=== PATIENT | female | born 1960 | race Caucasian/White ===

== ENCOUNTER 2018-03-13 08:38 | Inpatient (IN) | payer OTHER ==
[~2018-03-13] VITALS: Ht 170.2 cm; Wt 56.2 kg
[~2018-03-13 08:38] MED LIST: EMBREL; GABA-826 PO
[2018-03-13] MEDS ORDERED: TRAZ50TA18 PO (10:13)
[2018-03-13 10:15] LABS: ALBUMIN 2.7 g/dL (3.4-5.0); ANION GAP 9 mmol/L (5-15); CHLORIDE 109 mmol/L (98-107)
[2018-03-13 10:33] LABS: BASOPHILS # (AUTO) 0.12 x10^3/uL (0-0.1); BASOPHILS % (AUTO) 1 % (0-1); EOSINOPHILS # (AUTO) 0.04 x10^3/uL (0-0.4); EOSINOPHILS % (AUTO) 0 % (1-7); LYMPHOCYTES # (AUTO) 1.89 x10^3/uL (1-3.4); LYMPHOCYTES % (AUTO) 22 % (22-44); MD NO; MEAN CORPUSCULAR HEMOGLOBIN 25.7 pg (27.0-34.8); MEAN CORPUSCULAR HGB CONC 31.8 g/dL (32.4-35.8); MEAN CORPUSCULAR VOLUME 80.7 fL (80-100); MEAN PLATELET VOLUME 7.4 fL (7.4-10.4); MONOCYTES # (AUTO) 0.64 x10^3/uL (0.2-0.8); MONOCYTES % (AUTO) 7 % (2-9); NEUTROPHILS # (AUTO) 6.11 x10^3/uL (1.8-6.8); NEUTROPHILS % (AUTO) 70 % (42-75); PLATELET COUNT 463 x10^3/uL (130-400); RED BLOOD COUNT 4.35 x10^6/uL (3.82-5.3); RED CELL DISTRIBUTION WIDTH 17.2 % (9.6-15.2)
[2018-03-13] MEDS ORDERED: ASPIRIN 81 MG TABLET CHEW PO ONE (11:00)
[2018-03-13] MEDS ORDERED: BUPR1FIL3 PO (11:07)
[2018-03-13] MEDS ORDERED: ASPIRIN 81 MG TABLET CHEW ONE (11:09)
[2018-03-13 11:20] LABS: INTERNATIONAL NORMALIZED RATIO 0.89 (0.93-1.1); PROTHROMBIN TIME 9.3 Seconds (9.6-11.5)
[2018-03-13] MEDS ORDERED: POLYETHYLENE GLYCOL 17 GM PACKET PO PRN (12:00)
[2018-03-13] MEDS ORDERED: ONDANSETRON 2MG/ML, 2ML IVPush PRN (12:00)
[2018-03-13] MEDS ORDERED: LABETALOL 5MG/ML, 20ML IVPush PRN (12:00)
[2018-03-13] MEDS ORDERED: DOCUSATE 100 MG CAPSULE PO PRN (12:00)
[2018-03-13] MEDS ORDERED: BISACODYL 10 MG SUPP PR PRN (12:00)
[2018-03-13] MEDS ORDERED: ACETAMINOPHEN 325 MG TABLET PO PRN (12:00)
[2018-03-13 12:50] LABS: HCT (SEDRATE) 35.1 % (34.6-47.8)
[2018-03-13 12:57] VITALS: BP 130/84
[2018-03-13 13:22] VITALS: BP 130/82
[2018-03-13] MEDS ORDERED: methylPREDNISolone 4mg DOSE PACK PO ONE (13:30)
[2018-03-13] MEDS: ENOXAPARIN 40 MG/0.4 ML SQ SCH (13:47)
[2018-03-13] MEDS ORDERED: GADOBUTROL 7.5 MMOL/7.5 ML PFS ONE (15:19)
[2018-03-13] MEDS ORDERED: GABAPENTIN 100 MG CAPSULE PO SCH (16:00)
[2018-03-13] MEDS: BUPRENORPHINE HCL/NALOXONE 8-2MG FILM SL SCH ×2 (16:00→21:57)
[2018-03-13] MEDS ORDERED: GABA300C10 PO (17:32)
[2018-03-13] MEDS ORDERED: GABAPENTIN 100 MG CAPSULE ONE (17:36)
[2018-03-13] MEDS ORDERED: GABAPENTIN 100 MG CAPSULE PO ONE (18:00)
[2018-03-13 20:57] VITALS: BP 130/79
[2018-03-13] MEDS: GABAPENTIN 300 MG CAPSULE PO SCH (21:56)
[2018-03-13] MEDS: SODIUM CHLORIDE FLUSH 10ML SYR IVF SCH (21:56)
[2018-03-13] MEDS: TRAZODONE 50MG TABLET PO SCH (21:56)
[2018-03-14] VITALS (7 sets, daily range): BP systolic 122–163; BP diastolic 84–100
[2018-03-14 05:53] LABS: BASOPHILS # (AUTO) 0.04 x10^3/uL (0-0.1); BASOPHILS % (AUTO) 0 % (0-1); EOSINOPHILS # (AUTO) 0.01 x10^3/uL (0-0.4); EOSINOPHILS % (AUTO) 0 % (1-7); LYMPHOCYTES # (AUTO) 2.53 x10^3/uL (1-3.4); LYMPHOCYTES % (AUTO) 29 % (22-44); MD NO; MEAN CORPUSCULAR HEMOGLOBIN 25.8 pg (27.0-34.8); MEAN CORPUSCULAR HGB CONC 32.2 g/dL (32.4-35.8); MEAN CORPUSCULAR VOLUME 80.3 fL (80-100); MEAN PLATELET VOLUME 6.6 fL (7.4-10.4); MONOCYTES # (AUTO) 0.76 x10^3/uL (0.2-0.8); MONOCYTES % (AUTO) 9 % (2-9); NEUTROPHILS # (AUTO) 5.56 x10^3/uL (1.8-6.8); NEUTROPHILS % (AUTO) 63 % (42-75); PLATELET COUNT 473 x10^3/uL (130-400); RED BLOOD COUNT 4.37 x10^6/uL (3.82-5.3); RED CELL DISTRIBUTION WIDTH 17.1 % (9.6-15.2)
[2018-03-14 06:08] LABS: ANION GAP 8 mmol/L (5-15); CHLORIDE 109 mmol/L (98-107)
[2018-03-14 06:14] LABS: CHOL/HDL RATIO 4.4; CHOLESTEROL, TOTAL 188 mg/dL (140-239); CREATININE 0.57 mg/dL (0.55-1.02); HDL CHOL % 23 % (28-40); HDL CHOLESTEROL (DIRECT) 43 mg/dL (40-60); LDL CHOLESTEROL,CALCULATED 114 mg/dL (54-169); LDL/HDL RATIO 2.7 (0.5-3.0); TRIGLYCERIDES 156 mg/dL (50-200); VLDL CHOLESTEROL 31 mg/dL (0-25)
[2018-03-14] MEDS: SODIUM CHLORIDE FLUSH 10ML SYR IVF SCH ×2 (09:00→21:00)
[2018-03-14] MEDS: BUPRENORPHINE HCL/NALOXONE 8-2MG FILM SL SCH ×3 (09:00→22:53)
[2018-03-14] MEDS: GABAPENTIN 300 MG CAPSULE PO SCH ×3 (09:52→22:25)
[2018-03-14] MEDS ORDERED: ASPIRIN 81 MG TABLET CHEW PO ONE (11:00)
[2018-03-14] MEDS: ENOXAPARIN 40 MG/0.4 ML SQ SCH (14:22)
[2018-03-14] MEDS ORDERED: SIMVASTATIN 40 MG TABLET PO SCH (21:00)
[2018-03-14] MEDS ORDERED: SIMVASTATIN 20 MG TABLET PO SCH (21:00)
[2018-03-14] MEDS: TRAZODONE 50MG TABLET PO SCH (23:16)
[2018-03-15 00:51] VITALS: BP 140/91
[2018-03-15 08:06] VITALS: BP 150/93
[2018-03-15] MEDS: GABAPENTIN 300 MG CAPSULE PO SCH (09:02)
[2018-03-15] MEDS: BUPRENORPHINE HCL/NALOXONE 8-2MG FILM SL SCH (09:04)
[2018-03-15] MEDS ORDERED: ASPI-621 PO (10:16)
[2018-03-15] MEDS ORDERED: METH4TAB PO (10:16)
[2018-03-15] MEDS ORDERED: SIMV40TA3 PO (10:16)
== END 2018-03-15 15:00 | disposition home or self-care (01) | DRG 65 ==
LOC: ED 10:20 → EDIP 11:04 → 4EST 12:47 → DCLOUNGE 03-15 14:41
PROVIDERS: ADMIT Internal Medicine Pulmonary Disease; ATTEND Internal Medicine Pulmonary Disease
DX: I63.9 Cerebral infarction, unspecified (principal); E44.0 Moderate protein-calorie malnutrition; Z68.1 Body mass index [BMI] 19.9 or less, adult; L40.50 Arthropathic psoriasis, unspecified; F41.1 Generalized anxiety disorder; D64.9 Anemia, unspecified; I35.8 Other nonrheumatic aortic valve disorders; I10 Essential (primary) hypertension; M06.9 Rheumatoid arthritis, unspecified; Z82.3 Family history of stroke; Z83.3 Family history of diabetes mellitus
CPT/HCPCS: 36415; 70450; 70553; 80048; 80061; 82040; 85025; 85610; 85651; 85730; 93005; 93306; 93880; 99285; A9585; J1650; J7509; 92523-GN

== ENCOUNTER 2018-05-22 05:58 | Emergency (ER) | payer OTHER ==
[~2018-05-22] VITALS: Ht 170.2 cm; Wt 55.6 kg
[~2018-05-22 05:58] MED LIST changes: +ASPI-621 PO; +BUPR1FIL3 PO; +GABA300C10 PO; +METH4TAB PO; +SIMV40TA3 PO; +TRAZ-136 PO
[2018-05-22 06:34] LABS: BASOPHILS # (AUTO) 0.04 x10^3/uL (0-0.1); BASOPHILS % (AUTO) 0 % (0-1); EOSINOPHILS # (AUTO) 0.04 x10^3/uL (0-0.4); EOSINOPHILS % (AUTO) 0 % (1-7); LYMPHOCYTES % (AUTO) 20 % (22-44); MD NO; MEAN CORPUSCULAR HGB CONC 32.5 g/dL (32.4-35.8); MEAN CORPUSCULAR VOLUME 80.1 fL (80-100); MEAN PLATELET VOLUME 6.2 fL (7.4-10.4); MONOCYTES # (AUTO) 0.82 x10^3/uL (0.2-0.8); MONOCYTES % (AUTO) 6 % (2-9); NEUTROPHILS % (AUTO) 73 % (42-75); PLATELET COUNT 708 x10^3/uL (130-400); RED BLOOD COUNT 4.75 x10^6/uL (3.82-5.3); RED CELL DISTRIBUTION WIDTH 16.9 % (9.6-15.2)
[2018-05-22 06:44] LABS: ALBUMIN 2.8 g/dL (3.4-5.0); ANION GAP 10 mmol/L (5-15); CALCIUM 8.6 mg/dL (8.5-10.1); CHLORIDE 107 mmol/L (98-107); CREATININE 0.84 mg/dL (0.55-1.02)
[2018-05-22 07:20] VITALS: BP 151/101
== END 2018-05-22 07:38 | disposition home or self-care (01) ==
LOC: ED 07:30
DX: F41.1 Generalized anxiety disorder (principal); F51.04 Psychophysiologic insomnia; I10 Essential (primary) hypertension; Z86.73 Personal history of transient ischemic attack (TIA), and cerebral infarction without residual deficits; M06.9 Rheumatoid arthritis, unspecified
CPT/HCPCS: 36415; 80048; 82040; 85025; 93005; 99285

== ENCOUNTER 2018-05-26 05:02 | Emergency (ER) | payer OTHER ==
[~2018-05-26] VITALS: Ht 170.2 cm; Wt 54.8 kg
== END 2018-05-26 05:51 | disposition home or self-care (01) ==
LOC: ED 05:44
DX: F51.01 Primary insomnia (principal); F41.1 Generalized anxiety disorder; I10 Essential (primary) hypertension; Z86.73 Personal history of transient ischemic attack (TIA), and cerebral infarction without residual deficits; Z79.899 Other long term (current) drug therapy
CPT/HCPCS: 99283

== ENCOUNTER → 2018-10-30 | Outpatient (CLI) | payer OTHER ==
[~2018-10-30] MED LIST changes: -ASPI-621 PO; +ASPI81TA45 PO; -TRAZ-136 PO; +TRAZ50TA66 PO
== END | disposition home or self-care (01) ==
LOC: CFH 12:01
PROVIDERS: ATTEND Specialist
DX: M51.16 Intervertebral disc disorders with radiculopathy, lumbar region (principal); M17.11 Unilateral primary osteoarthritis, right knee; M41.86 Other forms of scoliosis, lumbar region
CPT/HCPCS: 72148

== ENCOUNTER 2018-12-24 10:11 | Inpatient (IN) | payer OTHER ==
[~2018-12-24] VITALS: Ht 172.7 cm; Wt 63.9 kg
[2018-12-24] VITALS (8 sets, daily range): BP systolic 98–130; BP diastolic 60–88
[~2018-12-24 10:11] MED LIST changes: +APIX5TAB PO; +ATOR20TA37 PO; +CYCL-259 PO; +OXYC-302 PO; +PANT40TA5 PO; +PRED10TA PO; +PREG150C PO
[2018-12-24 11:08] LABS: MEAN CORPUSCULAR HEMOGLOBIN 22.7 pg (27.0-34.8); MEAN CORPUSCULAR HGB CONC 31.2 g/dL (32.4-35.8); MEAN CORPUSCULAR VOLUME 72.6 fL (80-100); MEAN PLATELET VOLUME 6.7 fL (7.4-10.4); PLATELET COUNT 633 x10^3/uL (130-400); RED CELL DISTRIBUTION WIDTH 19.3 % (9.6-15.2)
[2018-12-24 11:09] LABS: ALANINE AMINOTRANSFERASE 18 U/L (12-78); ALBUMIN 2.2 g/dL (3.4-5.0); ANION GAP 3 mmol/L (5-15); CALCIUM 7.5 mg/dL (8.5-10.1); CHLORIDE 110 mmol/L (98-107)
[2018-12-24 11:12] LABS: ALKALINE PHOSPHATASE 69 U/L (45-117); ANISOCYTOSIS 1+; BASOPHILS # (AUTO) 0.04 x10^3/uL (0-0.1); BASOPHILS % (AUTO) 1 % (0-1); BILIRUBIN,TOTAL 0.2 mg/dL (0.2-1.0); CREATININE 0.51 mg/dL (0.55-1.02); EOSINOPHILS # (AUTO) 0.05 x10^3/uL (0-0.4); EOSINOPHILS % (AUTO) 1 % (1-7); HYPOCHROMIA 1+; LYMPHOCYTES # (AUTO) 1.94 x10^3/uL (1-3.4); LYMPHOCYTES % (AUTO) 23 % (22-44); MD MORPH REVIEW ONLY; MICROCYTOSIS 1+; MONOCYTES # (AUTO) 0.52 x10^3/uL (0.2-0.8); MONOCYTES % (AUTO) 6 % (2-9); NEUTROPHILS # (AUTO) 5.98 x10^3/uL (1.8-6.8); NEUTROPHILS % (AUTO) 70 % (42-75); TOTAL PROTEIN 5.4 g/dL (6.4-8.2)
[2018-12-24 11:14] LABS: <PLATELET ESTIMATE> INCREASED; <PLT MORPHOLOGY> NORMAL PLT MORPH
[2018-12-24 11:16] LABS: INTERNATIONAL NORMALIZED RATIO 0.92 (0.93-1.1); PROTHROMBIN TIME 9.7 Seconds (9.6-11.5)
--- NOTE | 2018-12-24 12:10 | NUR ---
ASSUMED CARE OF PT AT THIS TIME FROM LOBBY. AMBULATORY TO ROOM WITH STEADY GAIT. LABS AND US COMPLETED IN PIT. 58 Y/O F STATES "DIAGNOSED WITH DVT 12/15, TAKING BLOOD THINNERS, I'VE ONLY BEEN OUT OF HOSPITAL 9 DAYS, MONDAY NIGHT I NOTICED INCREASED SWELLING, THEN MONDAY MORNING FOOT, ANKLE, CALF ALL SWOLLEN AND BY MONDAY SWELLING WAS ALL THE WAY TO MY THIGH AND IT'S BEEN WEEPING CLEAR FLUIDS TOO SINCE MONDAY." RATES PAIN 7/10 IN LLE, UNABLE TO PALPATE PEDAL PULSE, POSTERIOR TIBIAL PULSE WEAK, 4+ PITTING EDEMA NOTED WITH ERYTHEMA AND WARMTH TO LLE. CONT PULSE OX, BP MONITORS APPLIED. VSS. CALL LIGHT IN REACH. FALL PRECAUTIONS IN PLACE. SIDE RAILS UPX2. AWAITING EVAL BY ERP. A&OX4. WARM BLANKET PROVIDED FOR COMFORT.
[2018-12-24] MEDS ORDERED: PREG150C PO (12:24)
[2018-12-24] MEDS ORDERED: TRAZ-137 PO (12:24)
[2018-12-24] MEDS ORDERED: OXYC-306 PO (12:24)
--- NOTE | 2018-12-24 12:31 | NUR ---
PT UP FOR RECHECK, AWAITING EVAL BY ERP. RESTING COMFORTABLY. CALL LIGHT IN REACH
--- NOTE | 2018-12-24 12:50 | NUR ---
DR. MURRAY AT BEDSIDE FOR EVALUATION, AWAITING ORDERS.
[2018-12-24] MEDS ORDERED: OXYcodone/APAP 5/325MG TABLET ONE (13:23)
[2018-12-24] MEDS ORDERED: PROMETHAZINE 25 MG/ML, 1ML IM PRN (13:30)
[2018-12-24] MEDS ORDERED: DOCUSATE 100 MG CAPSULE PO PRN (13:30)
[2018-12-24] MEDS ORDERED: BISACODYL 10 MG SUPP PR PRN (13:30)
[2018-12-24] MEDS ORDERED: POLYETHYLENE GLYCOL 17 GM PACKET PO PRN (13:30)
[2018-12-24] MEDS ORDERED: LABETALOL 5MG/ML, 20ML IVPush PRN (13:30)
[2018-12-24] MEDS ORDERED: SODIUM CHLORIDE FLUSH 10ML SYR IVF PRN (13:30)
[2018-12-24] MEDS ORDERED: morphine SULFATE 10 MG/ML, 1ML IVPush PRN (13:30)
[2018-12-24] MEDS ORDERED: HEPARIN 5,000 UNITS/ML, 1ML SQ SCH (13:30)
[2018-12-24] MEDS ORDERED: ONDANSETRON 2MG/ML, 2ML IVPush PRN (13:30)
[2018-12-24] MEDS ORDERED: OXYcodone/APAP 5/325MG TABLET PO ONE (13:30)
[2018-12-24] MEDS ORDERED: OXYcodone IR 5MG TABLET PO PRN (13:30)
[2018-12-24] MEDS ORDERED: hydrALAzine 20 MG/ML, 1ML IVPush PRN (13:30)
[2018-12-24] MEDS ORDERED: ONDANSETRON ODT 4 MG PO PRN (13:30)
--- NOTE | 2018-12-24 13:30 | NUR ---
BOARDING SPECIALIST AT BEDSIDE FOR EKG, GI MD AT BEDSIDE FOR EVALUATION. PT MEDICATED NOTED PER ORDER FOR 7/10 PAIN IN LLE. PT GIVEN INFORMED CONSENT BY DR. MURRAY FOR BLOOD TRANSFUSION, AGREES TO POC AND VERBALIZED UNDERSTANDING. CONSENT SIGNED BY PT AND DR. MURRAY AND PLACED ON PAPER CHART. RESTING COMFORTABLY. DENIES NEED TO USE RESTROOM. VSS. CALL LIGHT IN REACH
--- NOTE | 2018-12-24 13:45 | NUR ---
ADMITTING PROVIDER DR. VASQUEZ AT BEDSIDE FOR EVALUATION.
--- NOTE | 2018-12-24 14:15 | NUR ---
BLOOD READY, REQUESTED FROM BLOOD BANK
[2018-12-24 14:21] LABS: FREE T4 (FREE THYROXINE) 0.94 ng/dL (0.76-1.46); THYROID STIMULATING HORMONE 1.55 mIU/L (0.358-3.740)
--- NOTE | 2018-12-24 14:49 | NUR ---
PT REPORTS PAIN IMPROVED TO 5/10 "TOOK EDGE OFF, BETTER." DENIES NEED TO USE RESTROOM. BLOOD RECEIVED FROM BLOOD BANK. TO START TRANSFUSION. CALL LIGHT IN REACH. VSS.
--- NOTE | 2018-12-24 15:02 | NUR ---
BLOOD TRANSFUSION STARTED NOTED, VERIFIED AT BEDSIDE WITH FABBY HOOPER. VSS.
--- NOTE | 2018-12-24 15:14 | NUR ---
PT TOLERATING BLOOD TRANSFUSION WELL. DENIES ANY S/S OF REACTION. VSS. CALL LIGHT IN REACH. WATCHING TV. AWAITING ROOM ON FLOOR. PULSE OX 95% RA. REFUSES NEED FOR PAIN MEDICATION, RATES PAIN 4-5/10 IN LLE.
[2018-12-24] MEDS ORDERED: PANTOPRAZOLE 40 MG IV ONE (15:45)
--- NOTE | 2018-12-24 15:45 | NUR ---
PT CONTINUES TOLERATING BLOOD TRANSFUSION WELL. RESTING COMFORTABLY. VSS. CALL LIGHT IN REACH. DENIES NEED TO USE RESTROOM.
[2018-12-24] MEDS ORDERED: TEMPLATE NON-FORMULARY MED. (Gabapentin** 600 MG) PO SCH (16:00)
--- NOTE | 2018-12-24 16:00 | NUR ---
GI MD AT BEDSIDE FOR CONSULT.
[2018-12-24] MEDS: PANTOPRAZOLE 40 MG IV IVPush SCH (16:17)
--- NOTE | 2018-12-24 16:25 | NUR ---
GABAPENTIN REQUESTED FROM PHARMACY
[2018-12-24] MEDS ORDERED: GABAPENTIN 300 MG CAPSULE ONE (16:26)
[2018-12-24] MEDS ORDERED: OXYcodone/APAP 7.5/325MG TABLET ONE (16:26)
[2018-12-24] MEDS: OXYcodone/APAP 7.5/325MG TABLET PO SCH ×2 (16:30→20:29)
--- NOTE | 2018-12-24 16:32 | NUR ---
PT GIVEN WATER PER DR. LORD AND REGULAR DIET TRAY ORDERED, PT TO GO ON CLEAR LIQUID DIET TOMORROW. MEDICATED PER MD ORDER FOR PAIN IN LLE AND CHRONIC BACK PAIN. VSS. CALL LIGHT IN REACH. TOLERATING BLOOD TRANSFUSION WELL.
--- NOTE | 2018-12-24 16:43 | NUR ---
REPORT AND CARE TO LESLY RN AT THIS TIME, ROOM RECEIVED.
--- NOTE | 2018-12-24 17:00 | NUR ---
PT RESTING COMFORTABLY. DENIES NEED TO USE RESTROOM. BLOOD TRANSFUSIONS CONTINUES. VSS. AWAITING TRANSPORT TO FLOOR.
--- NOTE | 2018-12-24 17:15 | NUR ---
BLOOD STILL TRANSFUSING AT TIME OF TRANSFER
[2018-12-24] MEDS ORDERED: GABAPENTIN 300 MG CAPSULE PO SCH (17:16)
[2018-12-24 18:01] LABS: HEMOGLOBIN A1C 5.1 % (4.2-6.3)
[2018-12-24] MEDS: ATORVASTATIN 20 MG TABLET PO SCH (20:29)
[2018-12-24] MEDS: PREGABALIN 150 MG CAPSULE PO SCH (20:29)
[2018-12-24] MEDS: TRAZODONE 100MG TABLET PO SCH (20:29)
[2018-12-25] MEDS: PANTOPRAZOLE 40 MG IV IVPush SCH ×2 (01:54→15:17)
[2018-12-25 02:05] VITALS: BP 112/70
[2018-12-25] MEDS: OXYcodone/APAP 7.5/325MG TABLET PO SCH ×4 (05:56→23:56)
[2018-12-25 06:24] LABS: ANION GAP 4 mmol/L (5-15); CHLORIDE 114 mmol/L (98-107)
[2018-12-25 06:33] LABS: ALANINE AMINOTRANSFERASE 14 U/L (12-78); ALKALINE PHOSPHATASE 66 U/L (45-117); BILIRUBIN,TOTAL 0.3 mg/dL (0.2-1.0); CALCIUM 7.3 mg/dL (8.5-10.1); CHOL/HDL RATIO 3.1; CHOLESTEROL, TOTAL 109 mg/dL (140-239); CREATININE 0.44 mg/dL (0.55-1.02); HDL CHOL % 32 % (28-40); HDL CHOLESTEROL (DIRECT) 35 mg/dL (40-60); LDL CHOLESTEROL,CALCULATED 38 mg/dL (54-169); LDL/HDL RATIO 1.1 (0.5-3.0); TOTAL PROTEIN 4.7 g/dL (6.4-8.2); TRIGLYCERIDES 180 mg/dL (50-200); VLDL CHOLESTEROL 36 mg/dL (0-25)
[2018-12-25 07:13] VITALS: BP 109/71
[2018-12-25] MEDS: PREGABALIN 150 MG CAPSULE PO SCH ×2 (08:43→21:44)
[2018-12-25] MEDS: MOVIPREP POWDER 1 PREP KIT PO SCH ×2 (12:53→21:45)
[2018-12-25 14:38] VITALS: BP 112/73
[2018-12-25 18:28] VITALS: BP 118/82
[2018-12-25 18:45] VITALS: BP 96/58
[2018-12-25] MEDS: ATORVASTATIN 20 MG TABLET PO SCH (21:44)
[2018-12-25] MEDS: TRAZODONE 100MG TABLET PO SCH (23:56)
[2018-12-26 00:37] VITALS: BP 95/60
[2018-12-26] MEDS: PANTOPRAZOLE 40 MG IV IVPush SCH ×2 (01:38→15:09)
[2018-12-26] MEDS: OXYcodone/APAP 7.5/325MG TABLET PO SCH ×3 (05:19→17:02)
[2018-12-26 06:51] VITALS: BP 98/63
[2018-12-26] MEDS: MOVIPREP POWDER 1 PREP KIT PO SCH (09:00)
[2018-12-26] MEDS ORDERED: ROCURONIUM 10 MG/ML,10ML ONE (10:08)
[2018-12-26] MEDS ORDERED: PROPOFOL 10 MG/ML, 20ML ONE (10:08)
[2018-12-26] MEDS ORDERED: SUGAMMADEX 200 MG/2 ML IVPush ONE (10:35)
[2018-12-26] MEDS: PREGABALIN 150 MG CAPSULE PO SCH (12:31)
[2018-12-26 12:32] VITALS: BP 122/80
[2018-12-26] MEDS ORDERED: APIX5TAB PO (13:39)
[2018-12-26] MEDS ORDERED: ASPI81TA45 PO (13:39)
[2018-12-26] MEDS ORDERED: FUROSEMIDE 40 MG/4 ML IV ONE (14:30)
[2018-12-26 14:47] VITALS: BP 122/78
[2018-12-26 15:34] VITALS: BP 146/88
[2018-12-26 18:21] VITALS: BP 127/85
[2018-12-27] MEDS ORDERED: PANTOPROZOLE 40MG TABLET PO SCH (06:00)
== END 2018-12-26 20:43 | disposition home or self-care (01) | DRG 377 ==
LOC: ED 10:36 → EDIP 14:07 → 4EST 17:12
PROVIDERS: ADMIT Internal Medicine; ATTEND Emergency Medicine
PROC: 30233N1 Transfusion of Nonautologous Red Blood Cells into Peripheral Vein, Percutaneous Approach (ICD-10-PCS; principal; 2018-12-24)
PROC: 0D778ZZ Dilation of Stomach, Pylorus, Via Natural or Artificial Opening Endoscopic (ICD-10-PCS; 2018-12-26)
PROC: 0DJD8ZZ Inspection of Lower Intestinal Tract, Via Natural or Artificial Opening Endoscopic (ICD-10-PCS; 2018-12-26)
DX: K92.2 Gastrointestinal hemorrhage, unspecified (principal); E43 Unspecified severe protein-calorie malnutrition; D62 Acute posthemorrhagic anemia; I82.411 Acute embolism and thrombosis of right femoral vein; I82.431 Acute embolism and thrombosis of right popliteal vein; I69.354 Hemiplegia and hemiparesis following cerebral infarction affecting left non-dominant side; K64.8 Other hemorrhoids; L40.9 Psoriasis, unspecified; D50.9 Iron deficiency anemia, unspecified; I10 Essential (primary) hypertension; K44.9 Diaphragmatic hernia without obstruction or gangrene; M06.9 Rheumatoid arthritis, unspecified; R19.5 Other fecal abnormalities; G89.29 Other chronic pain; M54.9 Dorsalgia, unspecified; Z68.21 Body mass index [BMI] 21.0-21.9, adult; M19.90 Unspecified osteoarthritis, unspecified site; Z83.71 Family history of colonic polyps; Z86.711 Personal history of pulmonary embolism
CPT/HCPCS: 0399T; 36415; 36430; 71045; 80053; 80061; 83036; 83735; 84439; 84443; 85014; 85018; 85025; 85610; 85730; 86850; 86900; 86923; 93005; 93306; 99291; G0378; J1940; J2704; C1725; C9113; P9016

== ENCOUNTER 2019-05-15 11:04 | Outpatient (CLI) | payer OTHER | END 2019-05-15 23:59 | disposition home or self-care (01) | LOC: CFH 11:04 | PROVIDERS: ATTEND Surgery | DX: I82.422 Acute embolism and thrombosis of left iliac vein (principal); N28.1 Cyst of kidney, acquired; M41.86 Other forms of scoliosis, lumbar region; M51.36 Other intervertebral disc degeneration, lumbar region | CPT/HCPCS: 74177; Q9967 ==

== ENCOUNTER 2019-10-21 10:39 | Emergency (ER) | payer OTHER ==
[~2019-10-21] VITALS: Ht 172.7 cm; Wt 60.7 kg
[~2019-10-21 10:39] MED LIST changes: +OXYC-306 PO; +TRAZ-137 PO
[2019-10-21 11:28] LABS: MEAN CORPUSCULAR HEMOGLOBIN 19.8 pg (27.0-34.8); MEAN CORPUSCULAR HGB CONC 30.5 g/dL (32.4-35.8); MEAN PLATELET VOLUME 6.3 fL (7.4-10.4); PLATELET COUNT 646 x10^3/uL (130-400); RED BLOOD COUNT 5.05 x10^6/uL (3.82-5.3); RED CELL DISTRIBUTION WIDTH 21.5 % (9.6-15.2)
[2019-10-21 11:36] LABS: ALBUMIN 3.8 g/dL (3.4-5.0); ANION GAP 9 mmol/L (5-15); CALCIUM 8.8 mg/dL (8.5-10.1); CHLORIDE 108 mmol/L (98-107); CREATININE 0.68 mg/dL (0.55-1.02)
[2019-10-21 11:37] LABS: MD YES
[2019-10-21 11:40] LABS: TROPONIN I < 0.015 ng/mL (0.000-0.045)
[2019-10-21 11:54] LABS: ANISOCYTOSIS 1+; LYMPH#(MANUAL) 1.99 x10^3/uL (1-3.4); LYMPHS% (MANUAL) 28 % (22-44); MICROCYTOSIS 2+; MONOS#(MANUAL) 0.14 x10^3/uL (0.3-2.7); MONOS% (MANUAL) 2 % (2-9); SEG#(MANUAL) 4.97 x10^3/uL (1.8-6.8); SEGS% (MANUAL) 70 % (42-75)
[2019-10-21 11:55] LABS: <PLATELET ESTIMATE> INCREASED; <PLT MORPHOLOGY> NORMAL PLT MORPH
[2019-10-21 12:59] VITALS: BP 166/101
[2019-10-21] MEDS ORDERED: OXYcodone/APAP 7.5/325MG TABLET PO ONE (13:30)
[2019-10-21] MEDS ORDERED: OXYcodone/APAP 7.5/325MG TABLET ONE (13:50)
--- NOTE | 2019-10-21 14:05 | NUR ---
BREAK RN: PATIENT MEDICATED PER EMAR, TOLERATED WELL. WAITING FOR MD ORDER FOR DIFFERENT MEDICATION TO BE ADMINISTERED HERE, THEN PATIENT TBDC.
[2019-10-21] MEDS ORDERED: GABAPENTIN 300 MG CAPSULE ONE (14:11)
--- NOTE | 2019-10-21 14:13 | NUR ---
PATIENT MEDICATED PER EMAR, TOLERATED WELL. TBDC.
--- NOTE | 2019-10-21 14:17 | NUR ---
Patient/Caregiver given discharge instructions and they have confirmed that they understand the instructions. Patient wheeled to discharge. States she will call taxi for ride home.
[2019-10-21] MEDS ORDERED: GABAPENTIN 300 MG CAPSULE PO ONE (14:30)
== END 2019-10-21 14:18 | disposition home or self-care (01) ==
LOC: ED 14:04
DX: M54.2 Cervicalgia (principal); M54.9 Dorsalgia, unspecified; M79.642 Pain in left hand; M25.532 Pain in left wrist; M06.9 Rheumatoid arthritis, unspecified; G89.29 Other chronic pain; I10 Essential (primary) hypertension; F12.10 Cannabis abuse, uncomplicated; Z72.9 Problem related to lifestyle, unspecified; Z72.89 Other problems related to lifestyle; Z86.73 Personal history of transient ischemic attack (TIA), and cerebral infarction without residual deficits; Z86.718 Personal history of other venous thrombosis and embolism
CPT/HCPCS: 36415; 71046; 80048; 82040; 84484; 85025; 93005; 99284

== ENCOUNTER 2019-10-22 17:17 | Emergency (ER) | payer OTHER ==
[~2019-10-22] VITALS: Ht 172.7 cm; Wt 58.7 kg
--- NOTE | 2019-10-22 17:39 | NUR ---
RETAIL SALES TEAMMATE: PT TO ROOM FROM LOBBY
[2019-10-22] MEDS ORDERED: HYDROmorphone 2 MG/ML, 1ML ONE (18:17)
[2019-10-22] MEDS ORDERED: HYDROmorphone 2 MG/ML, 1ML IM ONE (18:30)
--- NOTE | 2019-10-22 19:17 | NUR ---
Provided bedside report to RUFUS Villavicencio. All questions answered. NADN. Saud RN to assume care of pt at this time.
[2019-10-22 19:28] VITALS: BP 118/74
== END 2019-10-22 19:33 | disposition home or self-care (01) ==
LOC: ED 19:05
DX: M54.5 Low back pain (principal); G89.29 Other chronic pain; M06.9 Rheumatoid arthritis, unspecified; I10 Essential (primary) hypertension; Z86.718 Personal history of other venous thrombosis and embolism; Z86.73 Personal history of transient ischemic attack (TIA), and cerebral infarction without residual deficits
CPT/HCPCS: 96372; 99283; J1170

== ENCOUNTER → 2020-08-06 | Outpatient (CLI) | payer OTHER ==
[~2020-08-06] MED LIST changes: +AMLO-150 PO; +GABA800T5 PO; +OXYC-296 PO; -PANT40TA5 PO; +PANT40TA6 PO; +SIMV40TA20 PO; -SIMV40TA3 PO; +TIZA4CAP PO; -TRAZ-137 PO; +TRAZ-175 PO; +VENL75TA PO
[2020-08-06 12:38] LABS: BASOPHILS % (AUTO) 1 % (0-1); EOSINOPHILS % (AUTO) 1 % (1-7); LYMPHOCYTES % (AUTO) 32 % (22-44); MEAN CORPUSCULAR HGB CONC 31.4 g/dL (32.4-35.8); MEAN PLATELET VOLUME 6.6 fL (7.4-10.4); MONOCYTES % (AUTO) 11 % (2-9); NEUTROPHILS % (AUTO) 55 % (42-75); PLATELET COUNT 500 x10^3/uL (130-400); RED CELL DISTRIBUTION WIDTH 20.9 % (9.6-15.2)
[2020-08-06 12:39] LABS: MD NO
[2020-08-06 12:48] LABS: INTERNATIONAL NORMALIZED RATIO 0.88 (0.93-1.1); PROTHROMBIN TIME 9.1 Seconds (9.6-11.5)
[2020-08-06 12:50] LABS: CHLORIDE 108 mmol/L (98-107)
[2020-08-06 12:54] LABS: ANION GAP 4 mmol/L (5-15); CREATININE 0.76 mg/dL (0.55-1.02)
== END | disposition home or self-care (01) ==
LOC: STAR 11:23
PROVIDERS: ATTEND Orthopaedic Surgery
DX: Z01.812 Encounter for preprocedural laboratory examination (principal); Z20.828 Contact with and (suspected) exposure to other viral communicable diseases; M17.11 Unilateral primary osteoarthritis, right knee; I21.29 ST elevation (STEMI) myocardial infarction involving other sites
CPT/HCPCS: 36415; 80048; 83036; 85025; 85610; 85730; 87081; 87147; 87635; 87806; 93005; G0475

== ENCOUNTER 2020-08-10 10:33 | Observation (INO) | payer OTHER ==
[~2020-08-10] VITALS: Ht 172.7 cm; Wt 67.1 kg
[~2020-08-10 10:33] MED LIST changes: +EPINEPHRINE 1 MG/ML, 1ML ONE; +KETOROLAC 60 MG/2 ML ONE; +ROPIvacaine/PF 0.2%, 20 ML ONE; +ROPIvacaine/PF 0.5%, 20 ML ONE; +SODIUM CHLORIDE 0.9% 50 ML ONE; +TRANEXAMIC ACID 100 MG/ML, 10ML ONE
[2020-08-10] MEDS ORDERED: ACETAMINOPHEN 500 MG TABLET PO ONE (11:30)
[2020-08-10] MEDS ORDERED: GABAPENTIN 300 MG CAPSULE PO ONE (11:30)
[2020-08-10] MEDS ORDERED: LACTATED RINGERS 1,000 ML IV SCH (11:30)
[2020-08-10] MEDS ORDERED: FLU VACC QS2020-21(6MOS UP)/PF 60MCG/0.5 ML SYR IM-VACC ONE (11:30)
[2020-08-10] MEDS ORDERED: CHLORHEXIDINE 15 ML UDC MM ONE (11:30)
[2020-08-10] MEDS ORDERED: MIDAZOLAM 1 MG/ML, 2ML ONE (11:38)
[2020-08-10] MEDS ORDERED: FENTANYL PF 250 MCG/5ML ONE (11:38)
[2020-08-10] MEDS ORDERED: POLYETHYLENE GLYCOL 17 GM PACKET PO PRN (12:30)
[2020-08-10] MEDS ORDERED: ONDANSETRON 2MG/ML, 2ML IVPush PRN ×2 (12:30→14:00)
[2020-08-10] MEDS ORDERED: PROMETHAZINE 12.5 MG SUPP PR PRN (12:30)
[2020-08-10] MEDS ORDERED: ONDANSETRON 4 MG TABLET PO PRN (12:30)
[2020-08-10] MEDS ORDERED: MAGNESIUM HYDROXIDE 8%, 30ML UDC PO PRN (12:30)
[2020-08-10] MEDS ORDERED: PSYLLIUM PACKET PO PRN (12:30)
[2020-08-10] MEDS ORDERED: SENNA/DOCUSATE TABLET PO PRN (12:30)
[2020-08-10] MEDS ORDERED: METOCLOPRAMIDE 10MG TABLET PO PRN (12:30)
[2020-08-10] MEDS ORDERED: HYDROmorphone 1 MG/ML, 1ML INJ IVPush PRN (12:30)
[2020-08-10] MEDS ORDERED: DEXAMETHASONE 4 MG/ML, 1ML IVPush SCH (12:30)
[2020-08-10] MEDS ORDERED: DIPHENHYDRAMINE 50 MG/ML, 1ML IVPush PRN (12:30)
[2020-08-10] MEDS ORDERED: DIPHENHYDRAMINE 50 MG CAPSULE PO PRN (12:30)
[2020-08-10] MEDS: CEFAZOLIN PMX 1GM/50ML 50 ML IVPB SCH ×3 (12:30→23:26)
[2020-08-10] MEDS ORDERED: ALUMINUM/MAG/SIMETHICONE 30 ML UDC PO PRN (12:30)
[2020-08-10] MEDS ORDERED: TRANEXAMIC ACID 1,000 MG in SODIUM CHLORIDE 0.9% 100 ML IVPB ONE (12:30)
[2020-08-10] MEDS ORDERED: ONDANSETRON 2MG/ML, 2ML ONE (12:46)
[2020-08-10] MEDS ORDERED: CEFAZOLIN 1,000 MG ONE (12:46)
[2020-08-10] MEDS ORDERED: DEXAMETHASONE 4 MG/ML, 1ML ONE (12:46)
[2020-08-10] MEDS ORDERED: PROPOFOL 10 MG/ML, 50ML ONE (12:46)
[2020-08-10] MEDS ORDERED: hydrALAzine 20 MG/ML, 1ML ONE (12:46)
[2020-08-10] MEDS ORDERED: ESMOLOL 100 MG/10 ML ONE (12:46)
[2020-08-10] MEDS ORDERED: NITROPRUSSIDE 25 MG/ML, 2ML ONE (13:20)
[2020-08-10] MEDS ORDERED: FENTANYL PF 100 MCG/2ML ONE ×6 (13:45→16:29)
[2020-08-10] MEDS ORDERED: hydrALAzine 20 MG/ML, 1ML IV PRN (14:00)
[2020-08-10] MEDS ORDERED: ROPIvacaine/PF 0.2%, 100ML 550 ML (check volume) INJ ONE (14:00)
[2020-08-10] MEDS ORDERED: LABETALOL 5MG/ML, 20ML IV PRN (14:00)
[2020-08-10] MEDS ORDERED: HYDROmorphone 1 MG/ML, 1ML INJ ONE ×2 (14:27→14:35)
[2020-08-10] MEDS ORDERED: OXYcodone 5 MG/5 ML ORAL.SOL UDC ONE ×2 (14:35→15:46)
[2020-08-10] MEDS: FENTANYL PF 100 MCG/2ML IV PRN ×7 (14:39→16:30)
[2020-08-10] MEDS: HYDROmorphone 1 MG/ML, 1ML INJ IVPush PRN ×4 (14:40→15:00)
[2020-08-10] MEDS ORDERED: DIAZEPAM 5 MG/ML, 2ML ONE (14:41)
[2020-08-10] MEDS: OXYcodone 5 MG/5 ML ORAL.SOL UDC PO PRN ×2 (14:51→15:47)
[2020-08-10] MEDS: DIAZEPAM 5 MG/ML, 2ML IVPush PRN ×2 (14:59→15:25)
[2020-08-10] MEDS ORDERED: KETOROLAC 30 MG/1 ML ONE (15:52)
[2020-08-10] MEDS: KETOROLAC 30 MG/1 ML IV SCH ×2 (16:11→16:41)
[2020-08-10] MEDS ORDERED: TIZANIDINE 4MG TABLET PO ONE (16:30)
[2020-08-10 18:33] VITALS: BP 150/91
[2020-08-10] MEDS: DOCUSATE 100 MG CAPSULE PO SCH (21:52)
[2020-08-10] MEDS: GABAPENTIN 400 MG CAPSULE PO SCH (21:52)
[2020-08-10] MEDS: ACETAMINOPHEN 650 MG/20.3 ML UDC PO PRN (21:53)
[2020-08-10] MEDS: OXYcodone IR 5MG TABLET PO PRN (21:56)
[2020-08-10 23:14] VITALS: BP 144/82
[2020-08-10] MEDS: POTASSIUM CHLORIDE 20 MEQ in D5%-0.45% NACL 1,000 ML IV SCH (23:26)
[2020-08-11] MEDS: TIZANIDINE 4MG TABLET PO PRN ×2 (01:07→09:06)
[2020-08-11] MEDS: KETOROLAC 30 MG/1 ML IV SCH (01:08)
[2020-08-11 03:39] VITALS: BP 132/79
[2020-08-11] MEDS: OXYcodone IR 5MG TABLET PO PRN ×3 (03:44→11:48)
[2020-08-11] MEDS: ACETAMINOPHEN 650 MG/20.3 ML UDC PO PRN ×3 (03:44→11:48)
[2020-08-11 06:28] VITALS: BP 145/84
[2020-08-11] MEDS: GABAPENTIN 400 MG CAPSULE PO SCH ×2 (06:52→11:48)
[2020-08-11] MEDS ORDERED: FLU VACC QS2020-21(6MOS UP)/PF 60MCG/0.5 ML SYR IM-VACC ONE (07:00)
[2020-08-11] MEDS ORDERED: OxyconTIN ER 10 MG TAB.ER PO SCH (07:00)
[2020-08-11] MEDS: POTASSIUM CHLORIDE 20 MEQ in D5%-0.45% NACL 1,000 ML IV SCH (07:27)
[2020-08-11] MEDS ORDERED: OXYC10TA47 PO (08:43)
[2020-08-11] MEDS ORDERED: APIXABAN 5 MG TABLET PO SCH (09:00)
[2020-08-11] MEDS ORDERED: AMLODIPINE 5 MG TABLET PO SCH (09:00)
[2020-08-11] MEDS ORDERED: ATORVASTATIN 20 MG TABLET PO SCH (09:00)
[2020-08-11] MEDS ORDERED: VENLAFAXINE 75 MG CAP ER PO SCH (09:00)
[2020-08-11] MEDS ORDERED: TAMSULOSIN 0.4 MG CAP.ER.24H PO SCH (09:00)
[2020-08-11] MEDS: DOCUSATE 100 MG CAPSULE PO SCH (09:06)
[2020-08-11 14:11] VITALS: BP 98/58
== END 2020-08-11 15:15 | disposition home or self-care (01) ==
LOC: OUT 10:33 → ORIP 12:26 → 4NE 16:45 → DCLOUNGE 08-11 15:07
PROVIDERS: ADMIT Orthopaedic Surgery; ATTEND Orthopaedic Surgery
DX: M17.11 Unilateral primary osteoarthritis, right knee (principal); M24.20 Disorder of ligament, unspecified site; M21.061 Valgus deformity, not elsewhere classified, right knee; Z86.718 Personal history of other venous thrombosis and embolism; Z86.73 Personal history of transient ischemic attack (TIA), and cerebral infarction without residual deficits; Z86.711 Personal history of pulmonary embolism; Z79.01 Long term (current) use of anticoagulants; Z23 Encounter for immunization
CPT/HCPCS: 27447; 36415; 73560; 85014; 85018; 90471; 90686; 96365; 96375; 96376; 97161; 97165; C1713; C1776; G0378; J0171; J0360; J0690; J1100; J1170; J1885; J2250; J2405; J2704; J2795; J3010; J3360; J3480; J7120

== ENCOUNTER 2021-02-01 13:52 | Emergency (ER) | payer OTHER ==
[~2021-02-01] VITALS: Ht 175.3 cm; Wt 68.5 kg
[~2021-02-01 13:52] MED LIST changes: +CARV3.1212 PO; -CYCL-259 PO; +CYCL10TA2 PO; -EPINEPHRINE 1 MG/ML, 1ML ONE; +GABA-827 PO; -KETOROLAC 60 MG/2 ML ONE; +LISI-167 PO; -OXYC-302 PO; -OXYC-306 PO; +OXYC-380 PO; +OXYC10TA47 PO; +OXYC1TAB14 PO; +OXYC1TAB17 PO; -ROPIvacaine/PF 0.2%, 20 ML ONE; -ROPIvacaine/PF 0.5%, 20 ML ONE; -SODIUM CHLORIDE 0.9% 50 ML ONE; +SULF1TAB24 PO; +TIZA4TAB2 PO; -TRANEXAMIC ACID 100 MG/ML, 10ML ONE; +VENL75CA6 PO
--- NOTE | 2021-02-01 14:06 | NUR ---
PT C/O PAIN FROM LT EAR TO LT FINGERTIPS. RAN OUT OF GABAPENTIN - LAST DOSE ON MONDAY. STATES SHE HAS REFILL WAITING FOR HER AT [facility]. PT HYPERVENTILATING; INSTRUCTED ON HOW TO SLOW BREATHING DOWN; COMPLIANT. PER EMS: PT RECEIVED VERSED 0.5MG, FENTANYL 50MCG X 2, ZOFRAN 4MG. IV 20G RAC. PT STATES SHE'S HOMEBOUND AND HAS CAREGIVERS. HX NECK SURGERY 2019, LT SIDED ARM PAIN STARTED AFTER SURGERY.
--- NOTE | 2021-02-01 14:58 | NUR ---
AMBULATORY TO & FROM [facility], USING OWN WALKER, HOLDING ON TO WALKER W/ BOTH HANDS, GAIT SLOW & STEADY. PT CONTINUES TO HYPERVENTILATE; INSTRUCTED TO BREATHE IN THROUGH NOSE & OUT THROUGH MOUTH. PT COMPLIES, INTERMITTENTLY. AWAITING PROVIDER EXAM
--- NOTE | 2021-02-01 15:00 | NUR ---
PT CONTINUES TO YELL LOUDLY. INFORMED PT, AGAIN, SHE NEEDS TO STOP BECAUSE IT IS DISRUPTIVE TO THE DEPARTMENT. PT COMPLIES BRIEFLY.
[2021-02-01] MEDS ORDERED: LISI10TA19 PO (15:06)
[2021-02-01] MEDS ORDERED: HYDR50TA99 PO (15:06)
[2021-02-01] MEDS ORDERED: TRAM50TA2 PO (15:06)
[2021-02-01] MEDS ORDERED: OXYC1TAB17 PO (15:06)
[2021-02-01] MEDS ORDERED: CARV3.122 PO (15:06)
[2021-02-01 15:11] VITALS: BP 166/115
[2021-02-01] MEDS ORDERED: GABAPENTIN 400 MG CAPSULE PO ONE (16:00)
[2021-02-01] MEDS ORDERED: OxyconTIN ER 10 MG TAB.ER PO ONE (16:00)
[2021-02-01] MEDS ORDERED: GABAPENTIN 400 MG CAPSULE ONE (16:08)
--- NOTE | 2021-02-01 16:44 | NUR ---
WITH REASSEMENT PAIN IMPROVED 2/10 ADVISED TO SEEK HELP IN DECREASING NARCOTIC DEPENDENCE
== END 2021-02-01 17:16 | disposition home or self-care (01) ==
LOC: ED 16:04
DX: M54.6 Pain in thoracic spine (principal); G89.29 Other chronic pain; R00.0 Tachycardia, unspecified; I25.2 Old myocardial infarction; I10 Essential (primary) hypertension; M19.90 Unspecified osteoarthritis, unspecified site; Z86.73 Personal history of transient ischemic attack (TIA), and cerebral infarction without residual deficits; Z87.891 Personal history of nicotine dependence
CPT/HCPCS: 99283

== ENCOUNTER → 2021-03-08 | Outpatient (CLI) | payer OTHER ==
[~2021-03-08] MED LIST changes: +CARV3.122 PO; +HYDR50TA99 PO; +LISI10TA19 PO; +SULF-23 PO; -SULF1TAB24 PO; +TRAM50TA2 PO
== END | disposition home or self-care (01) ==
LOC: RAD 12:29
PROVIDERS: ATTEND Orthopaedic Surgery
DX: M47.813 Spondylosis without myelopathy or radiculopathy, cervicothoracic region (principal); G99.2 Myelopathy in diseases classified elsewhere; M43.22 Fusion of spine, cervical region
CPT/HCPCS: 72050; 72125; 72141

== ENCOUNTER 2021-06-14 09:44 | Inpatient (IN) | payer OTHER ==
[~2021-06-14] VITALS: Ht 172.7 cm; Wt 61.6 kg
[~2021-06-14 09:44] MED LIST changes: +CEPH-376 PO; +DULO30CA2 PO; +GABA300C PO; +POTA20TA6 PO; +QUET100T PO; +SPIR50TA PO; +VENL150C6 PO
--- NOTE | 2021-06-14 09:55 | NUR ---
BIB [facility] FROM HOME. PT C/O GEN PAIN AFTER FALL 2 DAYS AGO. PAIN WORSE IN C2-C5 WHERE HAD SURGERY COUPLE YEARS AGO. PT ABLE TO TALK TO REMSA CALMLY AT HOME AND UPON ARRIVAL PT ANXIOUS AND RAPID BREATHING. NO INTERVENTIONS BY [facility]. PER [facility], PTs PILLS WERE SPILLED ALL OVER FLOOR OF HOME.
[2021-06-14] MEDS ORDERED: VANCOMYCIN PER PHARMACY MC ONE (10:30)
[2021-06-14] MEDS ORDERED: SODIUM CHLORIDE 0.9% 1,000 ML IV ONE (10:30)
[2021-06-14] MEDS ORDERED: ONDANSETRON 2MG/ML, 2ML IVPush ONE (10:30)
[2021-06-14] MEDS ORDERED: SODIUM CHLORIDE FLUSH 10ML SYR IVF ONE (10:30)
[2021-06-14] MEDS ORDERED: SODIUM CHLORIDE 0.9% 1,000ML IVBOLUS ONE (10:30)
[2021-06-14] MEDS ORDERED: MORPHINE SULFATE 4 MG/ML, 1ML ONE ×2 (10:32→14:03)
[2021-06-14] MEDS ORDERED: ONDANSETRON 2MG/ML, 2ML ONE (10:32)
[2021-06-14] MEDS: MORPHINE SULFATE 4 MG/ML, 1ML IV PRN ×2 (10:38→14:05)
[2021-06-14] MEDS ORDERED: PIPERACILLIN/TAZO 4.5 GM in DEXTROSE 5% 100 ML IVPB ONE (11:00)
[2021-06-14] MEDS ORDERED: PIPERACILLIN/TAZO 4.5 GM in SODIUM CHLORIDE 0.9% 100 ML IVPB ONE (11:00)
--- NOTE | 2021-06-14 11:03 | NUR ---
MED REQUESTED FROM PHARMACY.
--- NOTE | 2021-06-14 11:03 | NUR ---
GENERAL MACHINE OPERATOR HAS BEEN AT BEDSIDE TO COLLECT TWO SETS OF BLOOD CX.
--- NOTE | 2021-06-14 11:06 | NUR ---
MED REQUESTED FROM PHARMACY
[2021-06-14 11:13] LABS: BASOPHILS % (AUTO) 1 % (0-1); EOSINOPHILS % (AUTO) 0 % (1-7); LYMPHOCYTES % (AUTO) 23 % (22-44); MEAN CORPUSCULAR HEMOGLOBIN 27.2 pg (27.0-34.8); MEAN CORPUSCULAR HGB CONC 32.6 g/dL (32.4-35.8); MEAN PLATELET VOLUME 6.9 fL (7.4-10.4); MONOCYTES % (AUTO) 5 % (2-9); NEUTROPHILS % (AUTO) 71 % (42-75); PLATELET COUNT 786 x10^3/uL (130-400); RED BLOOD COUNT 4.54 x10^6/uL (3.82-5.3); RED CELL DISTRIBUTION WIDTH 18.4 % (9.6-15.2)
[2021-06-14] MEDS ORDERED: VANCOMYCIN 1,500 MG in SODIUM CHLORIDE 0.9% 250 ML IV ONE (11:30)
[2021-06-14 11:32] LABS: ALANINE AMINOTRANSFERASE 75 U/L (12-78); ALBUMIN 3.1 g/dL (3.4-5.0); ANION GAP 12 mmol/L (5-15); CALCIUM 9.4 mg/dL (8.5-10.1); CHLORIDE 105 mmol/L (98-107); CREATININE 0.51 mg/dL (0.55-1.02)
[2021-06-14 11:34] LABS: ALKALINE PHOSPHATASE 132 U/L (45-117); BILIRUBIN,TOTAL 0.5 mg/dL (0.2-1.0); CREATINE KINASE, TOTAL 52 U/L (26-192); TOTAL PROTEIN 8.3 g/dL (6.4-8.2)
--- NOTE | 2021-06-14 11:34 | NUR ---
IV ABX STARTED PER DEC. 2 SETS BLOOD CX COLLECTED PRIOR TO ADMIN. PT CONNECTED TO MONITORING. CALL LIGHT IN REACH. PT RESTING COMFORTABLY ON GURNEY. RESP EVEN AND UNLABORED.
[2021-06-14] MEDS ORDERED: NS + 40MEQ KCL 1,000 ML IV SCH (12:00)
--- NOTE | 2021-06-14 12:29 | NUR ---
PT RESTING COMFORTABLY ON GURNEY. RESP EVEN AND UNLABORED. CALL LIGHT IN REACH.
--- NOTE | 2021-06-14 12:34 | NUR ---
PER PHARMACY, OK TO INFUSE VANCO AND POTASSIUM TOGETHER.
--- NOTE | 2021-06-14 12:35 | NUR ---
ALL RESULTS ARE BACK AT THIS TIME. CHART UP FOR RECHECK.
[2021-06-14] MEDS ORDERED: NS + 40MEQ KCL 1,000 ML IV ONE (12:55)
[2021-06-14] MEDS ORDERED: POTASSIUM CHLORIDE 20 MEQ in SODIUM CHLORIDE 0.9% 1,000 ML IV ONE (13:00)
[2021-06-14] MEDS ORDERED: SODIUM CHLORIDE FLUSH 10ML SYR IVF PRN (13:00)
--- NOTE | 2021-06-14 13:03 | NUR ---
PT TO BE ADMIT. PT AWARE OF POC.
--- NOTE | 2021-06-14 14:07 | NUR ---
SECOND DOSE PAIN HOME PLANNING CONSULTANT SALESPERSON PER DEC, FOR 06/01 PAIN.
--- NOTE | 2021-06-14 14:17 | NUR ---
REPORT GIVEN TO JOHNNA HOOPER. PT RTG TO ROOM [id number].
[2021-06-14 14:41] VITALS: BP 153/94
[2021-06-14] MEDS ORDERED: MELATONIN 5 MG TABLET PO PRN (15:30)
[2021-06-14] MEDS ORDERED: BACLOFEN 10 MG TABLET PO PRN (15:30)
[2021-06-14] MEDS ORDERED: ONDANSETRON ODT 4 MG PO PRN (15:30)
[2021-06-14] MEDS ORDERED: hydrOXyzine 50MG TABLET PO PRN (15:30)
[2021-06-14] MEDS ORDERED: LABETALOL 5MG/ML, 20ML IVPush PRN (15:30)
[2021-06-14] MEDS ORDERED: OXYcodone/APAP 5/325MG TABLET PO PRN (15:30)
[2021-06-14] MEDS ORDERED: BISACODYL 10 MG SUPP PR PRN (15:30)
[2021-06-14] MEDS ORDERED: DOCUSATE 100 MG CAPSULE PO PRN (15:30)
[2021-06-14] MEDS ORDERED: ACETAMINOPHEN 325 MG TABLET PO PRN (15:30)
[2021-06-14] MEDS ORDERED: GABAPENTIN 300 MG CAPSULE PO SCH (16:00)
[2021-06-14] MEDS ORDERED: POTASSIUM CHLORIDE 20 MEQ TAB.ER.PRT PO SCH (17:00)
[2021-06-14] MEDS: GABAPENTIN 300 MG CAPSULE PO SCH ×2 (17:06→21:05)
[2021-06-14] MEDS: ENOXAPARIN 40 MG/0.4 ML SQ SCH (17:07)
[2021-06-14] MEDS: CYCLOBENZAPRINE 10 MG TABLET PO SCH ×2 (17:07→21:05)
[2021-06-14] MEDS: KETOROLAC 30 MG/1 ML IVPush SCH ×2 (17:07→21:06)
[2021-06-14] MEDS ORDERED: VANCOMYCIN PER PHARMACY MC PRN (17:30)
[2021-06-14] MEDS ORDERED: PHARMACOKINETIC CONSULTATION MC ONE (18:00)
[2021-06-14] MEDS ORDERED: PHARMACOKINETIC MONITORING MC PRN (18:00)
[2021-06-14 20:24] VITALS: BP 151/91
[2021-06-14] MEDS: DULOXETINE 30 MG CAPSULE.DR PO SCH (21:05)
[2021-06-14] MEDS: QUETIAPINE 100MG TABLET PO SCH (21:06)
[2021-06-14] MEDS: PIPERACILLIN/TAZO 3.375 GM in DEXTROSE 5% 50 ML IV SCH (21:06)
[2021-06-15 02:18] VITALS: BP 151/97
[2021-06-15] MEDS: PIPERACILLIN/TAZO 3.375 GM in DEXTROSE 5% 50 ML IV SCH ×4 (03:15→21:07)
[2021-06-15] MEDS: KETOROLAC 30 MG/1 ML IVPush SCH ×4 (03:15→22:01)
[2021-06-15] MEDS ORDERED: VANCOMYCIN 1,400 MG in SODIUM CHLORIDE 0.9% 250 ML IV SCH (06:00)
[2021-06-15 06:11] LABS: BASOPHILS % (AUTO) 1 % (0-1); EOSINOPHILS % (AUTO) 1 % (1-7); LYMPHOCYTES % (AUTO) 30 % (22-44); MEAN CORPUSCULAR HEMOGLOBIN 27.1 pg (27.0-34.8); MEAN CORPUSCULAR HGB CONC 32.2 g/dL (32.4-35.8); MEAN PLATELET VOLUME 6.3 fL (7.4-10.4); MONOCYTES % (AUTO) 9 % (2-9); NEUTROPHILS % (AUTO) 61 % (42-75); PLATELET COUNT 565 x10^3/uL (130-400); RED BLOOD COUNT 3.91 x10^6/uL (3.82-5.3); RED CELL DISTRIBUTION WIDTH 18.9 % (9.6-15.2)
[2021-06-15 06:14] LABS: ANION GAP 7 mmol/L (5-15); CALCIUM 8.3 mg/dL (8.5-10.1); CHLORIDE 114 mmol/L (98-107); CREATININE 0.49 mg/dL (0.55-1.02)
[2021-06-15 06:17] LABS: HCT (SEDRATE) 32.9 % (34.6-47.8)
[2021-06-15 06:51] LABS: ALANINE AMINOTRANSFERASE 47 U/L (12-78); ALBUMIN 2.2 g/dL (3.4-5.0); ALKALINE PHOSPHATASE 96 U/L (45-117); BILIRUBIN,TOTAL 0.4 mg/dL (0.2-1.0); TOTAL PROTEIN 6.2 g/dL (6.4-8.2)
[2021-06-15 07:03] LABS: BILIRUBIN, DIRECT < 0.1 mg/dL (0.1-0.2); BILIRUBIN,INDIRECT 0.3 mg/dL (0.0-2.0)
[2021-06-15 07:04] VITALS: BP 163/100
[2021-06-15] MEDS ORDERED: POTASSIUM CHLORIDE 20 MEQ TAB.ER.PRT PO ONE (07:30)
[2021-06-15] MEDS: SPIRONOLACTONE 50 MG TABLET PO SCH (07:49)
[2021-06-15] MEDS: GABAPENTIN 300 MG CAPSULE PO SCH ×4 (07:50→21:05)
[2021-06-15] MEDS: DULOXETINE 30 MG CAPSULE.DR PO SCH ×2 (07:50→21:07)
[2021-06-15] MEDS: VENLAFAXINE 75 MG CAP ER PO SCH (07:50)
[2021-06-15] MEDS: CYCLOBENZAPRINE 10 MG TABLET PO SCH ×3 (07:50→22:00)
[2021-06-15] MEDS: AMLODIPINE 5 MG TABLET PO SCH ×2 (09:00→21:07)
[2021-06-15] MEDS ORDERED: LISINOPRIL 10 MG TABLET PO SCH (09:00)
[2021-06-15] MEDS: OXYcodone/APAP 10/325MG TABLET PO SCH ×3 (09:00→21:07)
[2021-06-15] MEDS ORDERED: AMLODIPINE 5 MG TABLET PO SCH (09:00)
[2021-06-15 10:30] VITALS: BP 154/92
[2021-06-15 12:06] VITALS: BP 166/108
[2021-06-15 14:53] LABS: ANA SCREEN NEGATIVE (Negative)
[2021-06-15] MEDS: ENOXAPARIN 40 MG/0.4 ML SQ SCH (16:04)
[2021-06-15 19:31] VITALS: BP 125/82
[2021-06-15] MEDS: LISINOPRIL 10 MG TABLET PO SCH (21:06)
[2021-06-15] MEDS: QUETIAPINE 100MG TABLET PO SCH (22:01)
[2021-06-16 01:43] VITALS: BP 110/74
[2021-06-16] MEDS: GABAPENTIN 300 MG CAPSULE PO SCH ×4 (03:37→21:44)
[2021-06-16] MEDS: PIPERACILLIN/TAZO 3.375 GM in DEXTROSE 5% 50 ML IV SCH (03:37)
[2021-06-16] MEDS: KETOROLAC 30 MG/1 ML IVPush SCH ×4 (03:38→21:44)
[2021-06-16] MEDS: OXYcodone/APAP 10/325MG TABLET PO SCH ×4 (03:40→19:06)
[2021-06-16 05:15] LABS: BASOPHILS % (AUTO) 1 % (0-1); EOSINOPHILS % (AUTO) 2 % (1-7); LYMPHOCYTES % (AUTO) 36 % (22-44); MEAN CORPUSCULAR HEMOGLOBIN 27.1 pg (27.0-34.8); MEAN CORPUSCULAR HGB CONC 32.5 g/dL (32.4-35.8); MEAN PLATELET VOLUME 6.5 fL (7.4-10.4); MONOCYTES % (AUTO) 9 % (2-9); NEUTROPHILS % (AUTO) 54 % (42-75); PLATELET COUNT 536 x10^3/uL (130-400); RED BLOOD COUNT 3.83 x10^6/uL (3.82-5.3); RED CELL DISTRIBUTION WIDTH 18.4 % (9.6-15.2)
[2021-06-16 05:22] LABS: ANION GAP 7 mmol/L (5-15); CALCIUM 8.1 mg/dL (8.5-10.1); CHLORIDE 112 mmol/L (98-107); CREATININE 0.45 mg/dL (0.55-1.02)
[2021-06-16] MEDS ORDERED: POTASSIUM CHLORIDE 20 MEQ TAB.ER.PRT PO ONE ×2 (06:30→15:30)
[2021-06-16] MEDS ORDERED: POTASSIUM CHLORIDE 40 MEQ in SODIUM CHLORIDE 0.9% 500 ML IV ONE (06:30)
[2021-06-16 06:48] VITALS: BP 147/95
[2021-06-16] MEDS ORDERED: DIPHENOXYLATE/ATROPINE TABLET PO PRN (08:00)
[2021-06-16] MEDS: SPIRONOLACTONE 50 MG TABLET PO SCH (08:50)
[2021-06-16] MEDS: AMLODIPINE 5 MG TABLET PO SCH ×2 (08:50→21:45)
[2021-06-16] MEDS: CYCLOBENZAPRINE 10 MG TABLET PO SCH ×3 (08:50→21:45)
[2021-06-16] MEDS: DULOXETINE 30 MG CAPSULE.DR PO SCH ×2 (08:50→21:45)
[2021-06-16] MEDS: VENLAFAXINE 75 MG CAP ER PO SCH (08:50)
[2021-06-16] MEDS: LISINOPRIL 10 MG TABLET PO SCH ×2 (08:51→21:45)
[2021-06-16] MEDS: CEFTRIAXONE 2 GM in DEXTROSE 5% 50 ML IVPB SCH (10:15)
[2021-06-16 14:00] VITALS: BP 153/99
[2021-06-16] MEDS: ENOXAPARIN 40 MG/0.4 ML SQ SCH (15:30)
[2021-06-16 19:21] VITALS: BP 115/80
[2021-06-16] MEDS: QUETIAPINE 100MG TABLET PO SCH (21:45)
[2021-06-17 00:20] VITALS: BP 122/91
[2021-06-17] MEDS: OXYcodone/APAP 10/325MG TABLET PO SCH ×4 (00:49→19:19)
[2021-06-17] MEDS: GABAPENTIN 300 MG CAPSULE PO SCH ×4 (03:30→21:25)
[2021-06-17] MEDS: KETOROLAC 30 MG/1 ML IVPush SCH ×4 (03:31→21:26)
[2021-06-17 05:43] LABS: ANION GAP 5 mmol/L (5-15); CALCIUM 8.1 mg/dL (8.5-10.1); CHLORIDE 113 mmol/L (98-107)
[2021-06-17 05:46] LABS: CREATININE 0.38 mg/dL (0.55-1.02)
[2021-06-17 07:58] VITALS: BP 155/96
[2021-06-17] MEDS: CEFTRIAXONE 2 GM in DEXTROSE 5% 50 ML IVPB SCH (09:50)
[2021-06-17] MEDS: VENLAFAXINE 75 MG CAP ER PO SCH (09:51)
[2021-06-17] MEDS: SPIRONOLACTONE 50 MG TABLET PO SCH (09:51)
[2021-06-17] MEDS: DULOXETINE 30 MG CAPSULE.DR PO SCH ×2 (09:51→21:25)
[2021-06-17] MEDS: LINEZOLID 600 MG TABLET PO SCH ×2 (09:51→21:25)
[2021-06-17] MEDS: CYCLOBENZAPRINE 10 MG TABLET PO SCH ×3 (09:51→21:25)
[2021-06-17] MEDS: LISINOPRIL 10 MG TABLET PO SCH ×2 (09:58→21:25)
[2021-06-17] MEDS: AMLODIPINE 5 MG TABLET PO SCH ×2 (10:09→21:25)
[2021-06-17 14:22] VITALS: BP 118/78
[2021-06-17] MEDS: ENOXAPARIN 40 MG/0.4 ML SQ SCH (15:28)
[2021-06-17 20:49] VITALS: BP 121/84
[2021-06-17] MEDS: QUETIAPINE 100MG TABLET PO SCH (21:25)
[2021-06-18 00:17] VITALS: BP 105/74
[2021-06-18] MEDS: OXYcodone/APAP 10/325MG TABLET PO SCH ×2 (00:54→06:48)
[2021-06-18] MEDS: KETOROLAC 30 MG/1 ML IVPush SCH ×2 (03:24→10:17)
[2021-06-18] MEDS: GABAPENTIN 300 MG CAPSULE PO SCH ×2 (03:24→10:16)
[2021-06-18 07:51] VITALS: BP 117/78
[2021-06-18] MEDS ORDERED: LINE600T15 PO (08:32)
[2021-06-18] MEDS ORDERED: OXYC-380 PO (08:32)
[2021-06-18] MEDS ORDERED: LISINOPRIL 10 MG TABLET PO SCH (09:00)
[2021-06-18] MEDS ORDERED: AMLODIPINE 5 MG TABLET PO SCH (09:00)
[2021-06-18] MEDS: CEFTRIAXONE 2 GM in DEXTROSE 5% 50 ML IVPB SCH (10:15)
[2021-06-18] MEDS: DULOXETINE 30 MG CAPSULE.DR PO SCH (10:16)
[2021-06-18] MEDS: VENLAFAXINE 75 MG CAP ER PO SCH (10:16)
[2021-06-18] MEDS: SPIRONOLACTONE 50 MG TABLET PO SCH (10:16)
[2021-06-18] MEDS: LINEZOLID 600 MG TABLET PO SCH (10:17)
[2021-06-18] MEDS: CYCLOBENZAPRINE 10 MG TABLET PO SCH (10:24)
[2021-06-18] MEDS ORDERED: CEPH-376 PO (12:35)
== END 2021-06-18 12:58 | disposition home health service (06) | DRG 603 ==
LOC: ED 10:08 → EDIP 12:37 → SUATTDRO 12:55 → 3N 14:37
PROVIDERS: ADMIT Internal Medicine; ATTEND Hospitalist
DX: L03.114 Cellulitis of left upper limb (principal); K52.1 Toxic gastroenteritis and colitis; L03.115 Cellulitis of right lower limb; L03.116 Cellulitis of left lower limb; I50.40 Unspecified combined systolic (congestive) and diastolic (congestive) heart failure; R45.851 Suicidal ideations; E87.6 Hypokalemia; D64.9 Anemia, unspecified; R62.7 Adult failure to thrive; Z60.2 Problems related to living alone; R53.81 Other malaise; R79.89 Other specified abnormal findings of blood chemistry; M54.9 Dorsalgia, unspecified; A49.01 Methicillin susceptible Staphylococcus aureus infection, unspecified site; F41.9 Anxiety disorder, unspecified; F32.9 Major depressive disorder, single episode, unspecified; G47.00 Insomnia, unspecified; L40.50 Arthropathic psoriasis, unspecified; G89.29 Other chronic pain; I11.0 Hypertensive heart disease with heart failure; T36.95XA Adverse effect of unspecified systemic antibiotic, initial encounter; Y92.89 Other specified places as the place of occurrence of the external cause; Z86.73 Personal history of transient ischemic attack (TIA), and cerebral infarction without residual deficits; Z98.1 Arthrodesis status; I25.2 Old myocardial infarction
CPT/HCPCS: 36415; 80048; 80053; 80076; 82550; 83605; 83735; 84132; 85025; 85651; 86038; 86140; 86160; 86162; 86430; 87040; 87070; 87147; 87186; 87205; 96361; 96365; 96375; G0378; J0696; J1650; J1885; J2405; J2543; J3370; J3480; J2270; J7030; J7040; J7050